=== PATIENT | male | born 1955 | race Caucasian/White ===

== ENCOUNTER 2021-04-23 06:39 | Emergency (ER) | payer OTHER ==
[2021-04-23 07:29] LABS: CHLORIDE,CL 99 mmol/L (98-107); SODIUM,NA 132 mmol/L (136-145)
--- NOTE | 2021-04-23 09:28 | EDM.PDOC ---
ED HPI GENERAL MEDICAL PROBLEM - General Chief Complaint: ENT Problem Stated Complaint: nose bleed Time Seen by Provider: 04/23/21 07:00 Source of Information: Reports: Patient, Other ([facility] History Limitations: Reports: No Limitations - History of Present Illness INITIAL COMMENTS - FREE TEXT/NARRATIVE: Patient had nose bleed this morning out of both sides of his nose for approx 1 hour this morning. Sent to ER for eval. Stopped by time of arrival to ER. No history of recent trauma/URIs. Denies history of previous nose bleeds. No recent health changes. No vomiting of blood. - Related Data Allergies Allergy/AdvReac Type Severity Reaction Status Date / Time fluvastatin Allergy Cannot Verified 08/02/15 12:17 Remember niacin Allergy Cannot Verified 08/02/15 12:17 Remember pollen extracts Allergy Cannot Verified 08/02/15 12:17 Remember propranolol HCl Allergy Cannot Verified 08/02/15 12:17 [From Inderal LA] Remember simvastatin Allergy Cannot Verified 08/02/15 12:17 Remember zolpidem Allergy Cannot Verified 08/02/15 12:17 Remember hydrochloric acid Allergy Cannot Uncoded 08/02/15 12:17 Remember Home Meds: Home Meds Acetaminophen 650 mg PO 6XDAY PRN 08/02/15 [History] Fenofibrate,Micronized [Fenofibrate] 134 mg PO DAILY 08/02/15 [History] Indomethacin [Indocin] 50 mg PO BIDMEALS PRN 08/02/15 [History] Lisinopril 5 mg PO DAILY 08/02/15 [History] [place]-3/DHA/Epa/Fish Oil [Fish Oil 1,000 mg Softgel] 2 each PO BID 08/02/15 [His tory] Potassium Chloride [Klor-Con 10] 20 meq PO TID 08/02/15 [History] QUEtiapine Fumarate [Seroquel] 37.5 mg PO TID 08/02/15 [History] QUEtiapine Fumarate [Seroquel] 50 mg PO DAILY 08/02/15 [History] Sertraline HCl 200 mg PO DAILY 08/02/15 [History] Past Medical History Cardiovascular History: Reports: High Cholesterol, Hypertension Psychiatric History: Reports: Anxiety, Hallucinations, Suicide Attempt Social & Family History - Tobacco Use Tobacco Use Status *Q: Never Tobacco User Second Hand Smoke Exposure: No - Caffeine Use Caffeine Use: Reports: None - Recreational Drug Use Recreational Drug Use: No - Living Situation & Occupation Living situation: Reports: Extended Care Facility Occupation: Disabled ED ROS GENERAL - Review of Systems Review Of Systems: See Below Constitutional: Reports: No Symptoms HEENT: Reports: Nosebleed. Denies: Dental Pain, Ear Pain, Nose Pain, Sinus Problem, Throat Pain, Throat Swelling, Vision Change Respiratory: Reports: No Symptoms Cardiovascular: Reports: No Symptoms GI/Abdominal: Reports: No Symptoms. Denies: Nausea, Vomiting : Reports: No Symptoms Musculoskeletal: Reports: Other (no acute changes from baseline) Skin: Reports: No Symptoms Neurological: Reports: Other (no acute changes) Psychiatric: Reports: No Symptoms Hematologic/Lymphatic: Reports: No Symptoms Immunologic: Reports: No Symptoms ED EXAM, GENERAL - Physical Exam Exam: See Below Exam Limited By: No Limitations General Appearance: Alert, WD/WN, No Apparent Distress Eye Exam: Bilateral Eye: EOMI, PERRL Ears: Hearing Grossly Normal Nose: Other (dried blood noted both nares. Unable to visualize any active bleeding in either nasal cavity. No active bleeding noted on oropharynx. ) Throat/Mouth: Normal Lips, Normal Teeth, Normal Voice, No Airway Compromise Head: Atraumatic, Normocephalic Neck: Supple, Non-Tender, Full Range of Motion Respiratory/Chest: No Respiratory Distress, Lungs Clear, Normal Breath Sounds, No Accessory Muscle Use Cardiovascular: Regular Rate, Rhythm GI/Abdominal: Normal Bowel Sounds, Soft, Non-Tender, No Distention Extremities: Normal Capillary Refill Neurological: Alert Psychiatric: Normal Affect, Normal Mood Skin Exam: Warm, Dry, Intact, Normal Color Course - Vital Signs Last Recorded V/S: Last Vital Signs Temp 36.7 C 04/23/21 06:47 Pulse 106 H 04/23/21 06:47 Resp 16 04/23/21 06:47 BP 129/86 04/23/21 06:47 Pulse Ox 95 04/23/21 06:47 - Orders/Labs/Meds Labs: Laboratory Tests 04/23/21 04/23/21 Range/Units 07:00 07:00 WBC 5.1 (4.0-10.2) K/uL RBC 3.97 L (4.33-5.41) M/uL Hgb 11.8 L (13.1-16.8) g/dL Hct 33.7 L (39.0-49.0) % MCV 84.9 (84.0-98.0) fL MCH 29.7 (28.2-33.3) pg MCHC 35.0 (31.7-36.0) g/dL RDW 13.6 (11.2-14.1) % Plt Count 188 (150-350) K/uL Neut % (Auto) 76.8 (45.0-80.0) % Lymph % (Auto) 14.3 (10.0-50.0) % [place] % (Auto) 7.3 (2.0-14.0) % Eos % (Auto) 1.2 (0.0-5.0) % Baso % (Auto) 0.4 (0.0-2.0) % Neut # (Auto) 3.92 (1.40-7.00) K/uL Lymph # (Auto) 0.73 (0.50-3.50) K/uL [place] # (Auto) 0.37 (0.00-1.00) K/uL Eos # (Auto) 0.06 (0.00-0.50) K/uL Baso # (Auto) 0.02 (0.00-0.20) K/uL Sodium 132 L (136-145) mmol/L Potassium 4.0 (3.5-5.1) mmol/L Chloride 99 (98-107) mmol/L Carbon Dioxide 22.8 (21.0-32.0) mmol/L BUN 8 (7-18) mg/dL Creatinine 0.90 (0.51-1.17) mg/dL Est Cr Clr Drug Dosing 89.81 mL/min Estimated GFR (MDRD) > 60 mL/min Glucose 120 H (70-99) mg/dL Calcium 9.1 (8.5-10.1) mg/dL Total Bilirubin 0.5 (0.2-1.0) mg/dL AST 17 (15-37) U/L ALT 14 (12-78) U/L Alkaline Phosphatase 43 L (46-116) IU/L Total Protein 7.7 (6.4-8.2) g/dL Albumin 3.9 (3.4-5.0) g/dL - Re-Assessments/Exams Free Text/Narrative Re-Assessment/Exam: 04/23/21 09:32 Patient not on anticoagulation treatment. Observed for two hours. No rebleeding observed. CBC/Chem performed. Mildly low Na and Hgb. Plan at this time is to let patient return home to [place]. If he rebleeds they are to have him return and he will likely receive nasal packing with instructions to follow up with ENT. Patient noted by [facility] staff to be repeatedly blowing his nose when he was actively bleeding. Patient encouraged to avoid doing that if bleeding returns. Departure - Departure Time of Disposition: 09:26 Disposition: Home, Self-Care 01 Condition: Good Clinical Impression: Nosebleed - Discharge Information *PRESCRIPTION DRUG MONITORING PROGRAM REVIEWED*: Not Applicable *COPY OF PRESCRIPTION DRUG MONITORING REPORT IN PATIENT COREY: Not Applicable Instructions: Nosebleed, [id number] Referrals: Rebekah Low PA [Primary Care Provider] - Forms: ED Department Discharge Additional Instructions: Observe and see if bleed returns. If it does, DO NOT BLOW YOUR NOSE! If it does not stop quickly then return to ER for re-evaluation and nasal packing. Sepsis Event Note (ED) - Evaluation Sepsis Screening Result: No Definite Risk - Focused Exam Vital Signs: Vital Signs Temp Pulse Resp BP Pulse Ox 04/23/21 06:47 36.7 C 106 H 16 129/86 95
[2021-04-23] MEDS ORDERED: Phenylephrine 0.5% Nasal Spray 15 ML Bot NASBOTH ONE (10:07)
[2021-04-23 10:37] VITALS: BP 151/94; PULSE 115
== END 2021-04-23 10:40 ==
LOC: LL.ED 06:39
DX: R04.0 Epistaxis (principal); E78.00 Pure hypercholesterolemia, unspecified; I10 Essential (primary) hypertension; Z88.8 Allergy status to other drugs, medicaments and biological substances; Z91.048 Other nonmedicinal substance allergy status
CPT/HCPCS: 30903; 36415; 80053; 81001; 85025; 99283; 99284-25; A9270-GY

== ENCOUNTER 2021-04-27 21:24 | Emergency (ER) | payer OTHER ==
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
[2021-04-27] MEDS ORDERED: Phenylephrine 0.5% Nasal Spray 15 ML Bot NASBOTH ONE (22:05)
[2021-04-27 22:17] LABS: CHLORIDE,CL 105 mmol/L (98-107); SODIUM,NA 139 mmol/L (136-145)
[2021-04-27 22:19] LABS: PTT,PARTIAL THROMBOPLSTIN TIME 24.7 SEC (24.5-32.8)
[2021-04-27 22:35] VITALS: BP 128/69; PULSE 113
== END 2021-04-27 23:05 | disposition home or self-care (01) ==
LOC: LL.ED 21:24
DX: R04.0 Epistaxis (principal); Z20.822 Contact with and (suspected) exposure to COVID-19
CPT/HCPCS: 30903; 36415; 80053; 80307; 82140; 85025; 85610; 85730; 87635; 99283; A9270; 30901; 99284; U0002

== ENCOUNTER 2024-12-15 19:27 | Emergency (ER) | payer OTHER ==
[2024-12-15 22:23] VITALS: BP 130/82; PULSE 74
== END 2024-12-15 23:00 | disposition home or self-care (01) ==
LOC: LL.ED 19:27
DX: S01.112A Laceration without foreign body of left eyelid and periocular area, initial encounter (principal); I10 Essential (primary) hypertension; K21.9 Gastro-esophageal reflux disease without esophagitis; E11.9 Type 2 diabetes mellitus without complications; E03.9 Hypothyroidism, unspecified; E66.9 Obesity, unspecified; Z88.8 Allergy status to other drugs, medicaments and biological substances; Z91.048 Other nonmedicinal substance allergy status; Z79.890 Hormone replacement therapy; Z79.899 Other long term (current) drug therapy
CPT/HCPCS: 12011; 70450; 70486; 99283

== ENCOUNTER 2025-02-04 23:30 | Emergency (ER) | payer OTHER ==
[2025-02-04 23:33] VITALS: BP 131/78; PULSE 95
[2025-02-04] MEDS ORDERED: Diphtheria,Pertussis(Acell),Tetanus Vaccine 0.5 ML Syringe IM ONE (23:39)
[2025-02-05] MEDS: Lidocaine 1% 5 ML VIAL INJECT ONE (00:09)
[2025-02-05] MEDS: Bacitracin Oint 1 GM U/D Packet TOP ONE (00:09)
== END 2025-02-05 00:53 | disposition home or self-care (01) ==
LOC: LL.ED 23:30
DX: S01.81XA Laceration without foreign body of other part of head, initial encounter (principal); I10 Essential (primary) hypertension; E11.9 Type 2 diabetes mellitus without complications; K21.9 Gastro-esophageal reflux disease without esophagitis; E03.9 Hypothyroidism, unspecified; E66.9 Obesity, unspecified; Z88.8 Allergy status to other drugs, medicaments and biological substances; Z91.048 Other nonmedicinal substance allergy status; Z79.890 Hormone replacement therapy; Z79.899 Other long term (current) drug therapy; W01.0XXA Fall on same level from slipping, tripping and stumbling without subsequent striking against object, initial encounter
CPT/HCPCS: 12013; 99282; J2003